=== PATIENT | male | born 1975 | race Hispanic/Latino ===

== ENCOUNTER 2018-10-16 08:55 | Emergency (ER) | payer BC ==
[2018-10-16 08:57] VITALS: BMI 27.4
[2018-10-16 08:59] VITALS: O2SAT 98
[2018-10-16] MEDS ORDERED: Sodium Chloride 0.9% 1,000 ML IV STA ×2 (09:28→10:21)
--- NOTE | 2018-10-16 09:33 | ED PDOC ---
HPI: Abdomen Time Seen by Provider: 10/16/18 09:16 Chief Complaint (Nursing): Abdominal Pain History Per: Patient Additional Complaint(s): Pt. states on Friday he developed a decreased appetite and the following day diarrhea began associated with tactile fever tmax 99.4. Has been drinking tea and taking Tylenol. Symptoms persisted and last night he developed 1 episode of vomiting. Of note, pt. states he returned from a 5 day trip to [place] on Friday. Reports also having abdominal pain but currently without any abdominal pain. Denies melena, hematochezia, BRBPR, hematemesis, chest pain, sick contacts. Past Medical History Reviewed: Historical Data, Nursing Documentation, Vital Signs Vital Signs: Last Vital Signs Temp 98.4 F 10/16/18 08:58 Pulse 96 H 10/16/18 08:58 Resp 20 10/16/18 08:58 BP 94/66 L 10/16/18 08:58 Pulse Ox 98 10/16/18 08:58 - Medical History PMH: Hypothyroidism - Surgical History Surgical History: Tonsillectomy - Family History Family History: States: No Known Family Hx - Home Medications Home Medications: Ambulatory Orders Medication Instructions Recorded Dicyclomine [Bentyl] 20 mg PO TID PRN #10 tab 10/16/18 Ondansetron ODT [Zofran ODT] 4 mg PO TID #10 odt 10/16/18 - Allergies Allergies/Adverse Reactions: Allergies Allergy/AdvReac Type Severity Reaction Status Date / Time Penicillins Allergy RASH Verified 10/16/18 09:11 Review of Systems ROS Statement: Except As Marked, All Systems Reviewed And Found Negative Gastrointestinal: Positive for: Nausea, Vomiting, Abdominal Pain, Diarrhea Physical Exam - Physical Exam Appears: Positive for: Well, Non-toxic, No Acute Distress Skin: Positive for: Normal Color, Warm. Negative for: Rash Eye Exam: Positive for: Normal appearance. Negative for: Scleral icterus ENT: Positive for: Other (dry mucous membranes) Cardiovascular/Chest: Positive for: Regular Rate, Rhythm. Negative for: Tachycardia Respiratory: Positive for: Normal Breath Sounds Gastrointestinal/Abdominal: Positive for: Normal Exam, Soft. Negative for: Tenderness, Distended Back: Negative for: L CVA Tenderness, R CVA Tenderness Neurologic/Psych: Positive for: Alert, Oriented (x3). Negative for: Aphasia, Facial Droop - Laboratory Results Result Diagrams: 10/16/18 09:41 10/16/18 09:41 Urine dip results: Positive for: Ketones (40). Negative for: Leukocyte Esterase, Blood, Nitrate, Glucose, Bilirubin, Protein - ECG O2 Sat by Pulse Oximetry: 98 - Progress ED Course And Treament: Labs, blood culture x 2, IV NS bolus x 2, EKG ordered. 1045 On re-evaluation, pt. informed of lab results. Reports feeling much better. 2nd IV NS bolus infusing. Pending urine and stool samples. 1230 Stool sample given. Pt. ate and drank in ED. Tolerated PO. Reports no abdominal pain while in ED. Abd remains soft and non-tender. Advised to drink plenty of fluids at home and to f/u with PMD but is to return to ED immediately if symptoms worsen. Verbalized understanding of plan and care. Repeat VS improved. Disposition - Clinical Impression Clinical Impression: Gastroenteritis - Patient ED Disposition Is Patient to be Admitted: No - [facility] Disposition: Routine/Home Disposition Time: 12:40 Condition: IMPROVED Additional Instructions: FOLLOW UP WITH PMD FOR FURTHER EVALUATION RETURN TO ED IMMEDIATELY IF SYMPTOMS WORSEN EVERARDO MERA, thank you for letting us take care of you today. Your provider was Angela Olmos MD and you were treated for ABD PAIN. The emergency medical care you received today was directed at your acute symptoms. If you were prescribed any medication, please fill it and take as directed. It may take several days for your symptoms to resolve. Return to the Emergency Department if your symptoms worsen, do not improve, or if you have any other problems. Please contact your doctor or call one of the physicians/clinics you have been referred to that are listed on the Patient Visit Information form that is included in your discharge packet. Bring any paperwork you were given at discharge with you along with any medications you are taking to your follow up visit. Our treatment cannot replace ongoing medical care by a primary care provider outside of the emergency department. [facility] you [facility] to be part of your care today. If you had an X-Ray or CT scan: A Radiologist will review the ED reading if any change in treatment is needed we will contact you. If you had a blood, urine, or wound culture: It will take several days for the results, if any change in treatment is needed we will contact you. If you had an STI test: It will take 48 hours for the results. Please call after 1 week if you have not heard back. Prescriptions: Dicyclomine [Bentyl] 20 mg PO TID PRN #10 tab PRN Reason: abdominal pain Ondansetron ODT [Zofran ODT] 4 mg PO TID #10 odt Instructions: Gastroenteritis (ED) Forms: [facility] ([place]ayan), [facility] ED School/Work Excuse
[2018-10-16 09:47] LABS: BASO % 0.8 % (0.0-2.0); EOS % 0.5 % (0.0-4.0); HEMOGLOBIN 16.3 g/dL (12.0-18.0); LYMPH # 1.1 K/uL (1.0-4.3); LYMPH % 28.3 % (20.0-40.0); MEAN CELL VOLUME 91.8 fl (80.0-94.0); MEAN CORPUSCULAR HEMOGLOBIN 31.9 pg (27.0-31.0); MEAN CORPUSCULAR HGB CONC 34.8 g/dL (33.0-37.0); MEAN PLATELET VOLUME 7.5 fl (7.2-11.7); MONO # 0.5 K/uL (0.0-0.8); MONO % 13.3 % (0.0-10.0); NEUT # 2.1 K/uL (1.8-7.0); NEUT % 57.1 % (50.0-75.0); NRBC % 0.1 % (0.0-0.0); RBC 5.11 Mil/uL (4.40-5.90); RED CELL DISTRIBUTION WIDTH 13.4 % (11.5-14.5); WHITE BLOOD COUNT 3.7 K/uL (4.8-10.8)
[2018-10-16 09:57] LABS: ALB/GLOB RATIO 1.5 (1.0-2.1); ALBUMIN 4.2 g/dL (3.5-5.0); ALT/SGPT 43 U/L (21-72); AST/SGOT 42 U/L (17-59); BLOOD UREA NITROGEN 15 mg/dl (9-20); CALCIUM 8.6 mg/dL (8.4-10.2); GFR NON-AFRICAN AMERICAN > 60; LIPASE 52 U/L (23-300)
[2018-10-16 10:00] LABS: VENOUS BLOOD GAS BASE EXCESS 0.3 mmol/L (0.0-2.0); VENOUS BLOOD GAS PCO2 38 mmHg (40-60); VENOUS BLOOD GAS PO2 42 mm/Hg (30-55); VENOUS BLOOD PH 7.42 (7.32-7.43)
[2018-10-16 12:51] VITALS: BP 114/78; PULSE 76; RESP 20; TEMP 98
--- NOTE | 2018-10-16 17:59 | CARD ---
APPROVED REPORT Date of service: 10/16/2018 EKG Measurement Heart [id number] <Conclusion> Normal sinus rhythm Normal ECG
== END 2018-10-16 12:51 | disposition home or self-care (01) ==
LOC: H.ER 08:55
DX: K52.9 Noninfective gastroenteritis and colitis, unspecified (principal); Z88.0 Allergy status to penicillin; E03.9 Hypothyroidism, unspecified
CPT/HCPCS: 80053; 82803; 82948; 83690; 85025; 87040; 87045; 87149; 87177; 87181; 87205; 87209; 87804; 93005; 96360; 99284; J7030